=== PATIENT | male | born 1975 | race Caucasian/White ===

== ENCOUNTER 2019-05-09 02:50 | Emergency (ER) | payer SELFPAY ==
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
== END 2019-05-09 05:05 | disposition home or self-care (01) ==
LOC: VM.ED 02:50
DX: M54.2 Cervicalgia (principal); V48.6XXA Car passenger injured in noncollision transport accident in traffic accident, initial encounter; Y92.410 Unspecified street and highway as the place of occurrence of the external cause
CPT/HCPCS: 72125; 99283-25